=== PATIENT | male | born 1950 | race Caucasian/White ===

== ENCOUNTER → 2019-10-09 | Outpatient (CLI) | payer MEDICARE ==
[~2019-10-09] MED LIST: METO50TA82 PO; OMEP20TA62 PO; SIMV20TA19 PO; SIMV80TA18 PO
== END | disposition home or self-care (01) ==
LOC: CFH 07:25
PROVIDERS: ATTEND Internal Medicine
DX: K42.9 Umbilical hernia without obstruction or gangrene (principal); K51.90 Ulcerative colitis, unspecified, without complications; K52.89 Other specified noninfective gastroenteritis and colitis; I77.811 Abdominal aortic ectasia
CPT/HCPCS: 74176

== ENCOUNTER 2020-01-01 09:50 | Emergency (ER) | payer MEDICARE ==
[~2020-01-01] VITALS: Ht 167.6 cm; Wt 76.7 kg
[2020-01-01] MEDS ORDERED: SODIUM CHLORIDE FLUSH 10ML SYR IVF ONE (10:30)
[2020-01-01 10:43] LABS: MEAN CORPUSCULAR HEMOGLOBIN 27.4 pg (27.5-34.5); MEAN CORPUSCULAR HGB CONC 32.5 g/dL (33.2-36.2); MEAN CORPUSCULAR VOLUME 84.4 fL (81-97); MEAN PLATELET VOLUME 7.3 fL (7.4-10.4); PLATELET COUNT 448 x10^3/uL (130-400); RED BLOOD COUNT 5.15 x10^6/uL (4.38-5.82); RED CELL DISTRIBUTION WIDTH 15.4 % (9.4-14.8)
[2020-01-01] MEDS ORDERED: ONDANSETRON 2MG/ML, 2ML ONE (10:43)
--- NOTE | 2020-01-01 10:51 | NUR ---
pt presents to ED with c/o generalized abd pain, n/v/d, and hematochezia since 06/2019. pt has hx chron's disease, being followed by a GI specialist. Pt states that he has been unable to reach GI specialist despite multiple calls to office for medication adjustment to manage chron's. pt is a&ox4, resps even and unlabored. pt able to speak in full sentences without difficulty. pt ambulatory with steady gait. pt seen and examined by MD Shankar who explained POC. pt has nausea but has not vomited or passed stool since arrival. Zofran requested from EDMD Shankar for nausea tx. PIV placed, labs drawn. pt instructed to provide clean catch ua, supplies at bedside. call light in reach, warm blanket provided. awaiting labs and CT scan at this time.
[2020-01-01 10:56] LABS: ALANINE AMINOTRANSFERASE 29 U/L (12-78); ALBUMIN 2.2 g/dL (3.4-5.0); ANION GAP 8 mmol/L (5-15); CALCIUM 8.6 mg/dL (8.5-10.1); CHLORIDE 103 mmol/L (98-107); CREATININE 1.12 mg/dL (0.7-1.3)
[2020-01-01 10:58] LABS: ALKALINE PHOSPHATASE 145 U/L (45-117); TOTAL PROTEIN 6.9 g/dL (6.4-8.2)
[2020-01-01] MEDS ORDERED: ONDANSETRON 2MG/ML, 2ML IVPush ONE (11:00)
[2020-01-01 11:16] LABS: MD YES
[2020-01-01 11:18] LABS: <PLATELET ESTIMATE> INCREASED; <PLT MORPHOLOGY> NORMAL PLT MORPH; ANISOCYTOSIS 1+; BANDS%(MANUAL) 13 % (0-7); EOS#(MANUAL) 0.12 x10^3/uL (0.0-0.4); EOS% (MANUAL) 1 % (1-7); LYMPH#(MANUAL) 0.58 x10^3/uL (1-3.4); LYMPHS% (MANUAL) 5 % (22-44); METAMYELOCYTES# (MANUAL) 0.23 x10^3/uL (0-0); METAMYELOCYTES% (MANUAL) 2 % (0-1); MONOS#(MANUAL) 0.58 x10^3/uL (0.3-2.7); MONOS% (MANUAL) 5 % (2-9); PMNS WITH VACUOLES 1+; POLYCHROMASIA 1+; SEG#(MANUAL) 8.51 x10^3/uL (1.8-6.8); SEGS% (MANUAL) 74 % (42-75)
--- NOTE | 2020-01-01 11:25 | NUR ---
pt to CT, nadn at transport.
[2020-01-01] MEDS ORDERED: OMNIPAQUE 350 MG/ML, 100ML BOTTLE ONE (11:41)
--- NOTE | 2020-01-01 11:48 | NUR ---
pt back from CT, states nausea has resolved. pt a&o, resps even and unlabored. nadn. bp and spo2 monitors in place. awaiting CT read and dispo.
[2020-01-01] MEDS ORDERED: SODIUM CHLORIDE 0.9% 1,000 ML IV ONE (12:00)
--- NOTE | 2020-01-01 12:25 | NUR ---
IVF initiated per emar, pt was up to bathroom for bm x 1. pt states he attempted to provide urine but was unable. EDMD Shankar notified. EDND has paged GI for consult, pt informed. pt states d/t finances, he will be unable to fill an expensive prescription. EDMD notified.
[2020-01-01 13:46] VITALS: BP 123/77
--- NOTE | 2020-01-01 13:50 | NUR ---
RESULTS AND POC TO FOLLOW UP WITH GI DISCUSSED BETWEEN LACHO RENDON AND PT. PT AGREEABLE TO PLAN. PT A&O, RESPS EVEN AND UNLABORED, NADN. PT NO N/V/D AT THIS TIME. PT GIVEN DC INSTRUCTIONS, PIV DC'D WITH TIP INTACT. PT AMBULATORY TO DC DESK WITH STEADY GAIT, ALL QUESTIONS ANSWERED.
== END 2020-01-01 13:51 | disposition home or self-care (01) ==
LOC: ED 13:16
DX: K51.80 Other ulcerative colitis without complications (principal); I10 Essential (primary) hypertension; Z87.891 Personal history of nicotine dependence
CPT/HCPCS: 36415; 74177; 80053; 83690; 85025; 86480; 86706; 96361; 96374; 99285; J2405; J7030; Q9967